=== PATIENT | male | born 1945 | race Asian ===

== ENCOUNTER → 2017-07-06 | Outpatient (CLI) | payer OTHER ==
[~2017-07-06] MED LIST: ALBUTEROL 0.083% (NEB) 2.5 MG/3 ML AMP ONE
== END | disposition home or self-care (01) ==
LOC: PUL 10:12
PROVIDERS: ATTEND Internal Medicine
DX: R05 Cough (principal)
CPT/HCPCS: 94060; 94726; 94729; Z7610

== ENCOUNTER 2018-07-17 11:03 | Emergency (ER) | END 2018-07-17 13:13 | disposition home or self-care (01) ==